=== PATIENT | female | born 1995 | race Caucasian/White ===

== ENCOUNTER 2018-05-26 10:52 | Inpatient (IN) | END 2018-06-01 18:37 | disposition home or self-care (01) | DRG 493 ==

== ENCOUNTER 2018-09-26 18:00 | Emergency (ER) | payer SELFPAY ==
[~2018-09-26] VITALS: Ht 172.7 cm; Wt 88.9 kg
[2018-09-26 18:08] VITALS: BP 169/97; PULSE 107; RESP 20; Ht 172.7 cm; Wt 88.9 kg
--- NOTE | 2018-09-26 21:01 | ERD ---
ER Documentation Chief Complaint Chief Complaint Complains of pain at the post op site needs a wound check HPI Patient was recent history of right humerus fracture status post ORIF May 2018 is complaining of sudden onset right bicep pain times 1 day. Patient states that she was rubbing her right elbow when she felt something "snapped". Reports pain is sharp, but low in intensity. Pain is worse when she extends her elbow. Patient states that her orthopedic surgeon told her that she had a "loose screw" in her hardware, and she should come to the ER if she is experiencing pain. Denies fever or chills. Denies recent trauma. ROS All systems reviewed and are negative except as per history of present illness. Medications Home Meds Active Scripts Ibuprofen* (Motrin*) 600 Mg Tab, 600 MG PO Q6H PRN for PAIN AND OR ELEVATED TEMP, #30 TAB Prov:KARISOCO X. [employer] 09/26/18 Allergies Allergies: Coded Allergies: No Known Allergy (Unverified , 05/26/18) PMhx/Soc History of Surgery: Yes (right humerus fx 4 months ago) Anesthesia Reaction: No Hx Neurological Disorder: No Hx Respiratory Disorders: No Hx Cardiac Disorders: No Hx Psychiatric Problems: No Hx Miscellaneous Medical Probl: No Hx Alcohol Use: No Hx Substance Use: No Hx Tobacco Use: No Smoking Status: Never smoker Physical Exam Vitals Vital Signs Date Temp Pulse Resp B/P (MAP) Pulse Ox O2 O2 Flow FiO2 Time Delivery Rate 09/26/18 99.2 107 20 169/97 97 18:08 (121) Physical Exam General: Well-developed, well-nourished, conscious and coherent, in no distress Skin: Warm and dry without rash, good texture and turgor Head: Normocephalic without evidence of trauma Chest: Normal AP diameter. Good expansion without retractions. Nontender. Lungs are clear to auscultate bilaterally with good tidal volume Heart: Regular rate and rhythm. No murmur, rub, or gallops heard Extremities: Surgical scar noted in the posterior right upper arm, right forearm and hand in a splint. Muscle spasm and tenderness noted over the right biceps. Full range of motion. Good strength bilaterally. No erythema, ec chymosis, or edema. Peripheral pulses are intact. Sensation intact Neuro: Alert and oriented 4, GCS 15. Results 24 hrs PROCEDURE: Right humerus x-ray CLINICAL INDICATION: pain TECHNIQUE: AP and lateral views of the humerus were obtained. COMPARISON: DR BURCH 05/28/2018 FINDINGS: There is normal mineralization. No acute fracture or dislocation is seen. The patient is status post fixation of the right humerus with a metallic plate and multiple screws. There is no significant healing noted. There is no significant soft tissue swelling. RPTAT: AA IMPRESSION: Status post ORIF of the right humerus. No acute fracture noted. .Laz Skelton MD, Date Time Electronically viewed and signed by .Laz Skelton MD, on 09/26/2018 22:02 .S/ CC: SOCO PIERCE. [employer] Procedures/MDM 22-year-old female with history of right humerus fracture status post ORIF presents the ED complaining of right arm pain. X-ray of the right humerus is negative for any acute changes. Low suspicion for hardware migration. Patient noted to have muscle spasm on her right biceps, likely this is because of her pain. However, patient is advised to follow-up with her orthopedic surgeon tomorrow. Patient appears well, stable for discharge and outpatient management. Medical decision making shared with patient and family. Education provided to patient and family. Patient and family expressed understanding of the plan. Medications on discharge: Ibuprofen. Follow-up: Primary care provider in 2-3 days or return to ED if worse. Disclaimer: Inadvertent spelling and grammatical errors are likely due to EHR/dictation software use and do not reflect on the overall quality of patient care. Also, please note that the electronic time recorded on this note does not necessarily reflect the actual time of the patient encounter. Departure Diagnosis: Primary Impression: Right arm pain Condition: Stable SOCO PIERCE NP Sep 26, 2018 21:01
[2018-09-26] MEDS ORDERED: IBUP-1542 PO (22:55)
== END 2018-09-27 00:12 | disposition home or self-care (01) ==
LOC: FTE 18:00
DX: G89.18 Other acute postprocedural pain (principal); R40.2412 Glasgow coma scale score 13-15, at arrival to emergency department